=== PATIENT | female | born 1945 | race Caucasian/White ===

== ENCOUNTER 2024-11-20 09:11 | Outpatient (CLI) | payer MEDICARE, SELFPAY ==
--- NOTE | 2024-11-20 09:23 | CT_ITS ---
FINAL REPORT TECHNIQUE: Axial images of the abdomen and pelvis was performed with and without contrast by computed tomography. Sagittal and coronal reformatted images were obtained and reviewed. This study was performed with techniques to keep radiation doses as low as reasonably achievable, (ALARA). Individualized dose reduction techniques using automated exposure control or adjustment of mA and/or kV according to the patient's size were employed. CLINICAL HISTORY: Abdominal pain-right upper quadrant FINDINGS: The lung bases are clear. There is dense coronary artery calcification. There are postoperative changes from prior gastric sleeve. The liver parenchyma is homogeneous. The gallbladder is absent. There are calcified granulomas in the spleen. The adrenals are normal. The pancreas is unremarkable. The kidneys enhance appropriately. Precontrast images demonstrate no nephrolithiasis. There are postoperative changes from fusion hardware bridging L2-3 and L3-4. There are multiple fluid-filled loops of small bowel and colon. There is no evidence of obstruction. IMPRESSION: No acute process Reviewed, Interpreted and Dictated by Sina Wise MD Transcribed by Rosalba Fonseca Authenticated and . [facility]
[2024-11-20 09:46] LABS: Blood Urea Nitrogen 13 mg/dl (7-17); Estimated Glomerular Filt Rate 60 ml/min (>60); GFR (African American) 73 ML/MIN (>60)
[2024-11-20] MEDS: SODIUM CHLORIDE 0.9% 10ML SYR (RAD ONLY) 10 ML IV (10:20)
[2024-11-20] MEDS: IOPAMIDOL-370 (76%);100ML BOTTLE 75 ML IV (10:20)
== END 2024-11-20 23:59 | disposition home or self-care (01) ==
LOC: RAD 09:16
PROVIDERS: PCP Family Medicine; Visit Provider Internal Medicine Gastroenterology
DX: R10.11 Right upper quadrant pain (principal); R14.0 Abdominal distension (gaseous)
CPT/HCPCS: 36415; 74178; 82565; 84520; Q9967